=== PATIENT | male | born 1970 | race Caucasian/White ===

== ENCOUNTER 2021-10-30 07:25 | Outpatient (CLI) | payer BC ==
[2021-10-30 08:52] LABS: Hemoglobin 15.6 g/dL (13.5-17.5); Mean Corpuscular HGB CONC 33.8 g/dL (32.0-36.0); Mean Corpuscular Hemoglobin 32.4 pg (27.0-33.0); Mean Corpuscular Volume 95.6 fl (81.2-95.1); Mean Platelet Volume 10.3 fl (7.4-10.4); Platelet Count 267 10x3/uL (150-450); RBC Distribution Width 11.7 % (11.5-14.5); Red Blood Cell (RBC) Count 4.82 10x6/uL (4.32-5.72); White Blood Cell (WBC) Count 9.1 10x3/uL (3.5-10.5)
[2021-10-30 08:57] LABS: INR-International Normal Ratio 0.9; PTT 26.6 sec (22.0-33.0)
[2021-10-30 09:00] LABS: Anion Gap 17 mmol/L (10-20); BUN (Urea Nitrogen) 23 mg/dL (8.4-25.7); Calc. Creatinine Clearance 0 mL/min (70-130); Calcium 9.4 mg/dL (7.8-10.44); Carbon Dioxide 23 mmol/L (22-29); Chloride 105 mmol/L (98-107); Glucose 93 mg/dL (70-105); Potassium 5.2 mmol/L (3.5-5.1); Sodium 140 mmol/L (136-145)
[2021-10-30 23:01] LABS: SARS-CoV-2 PCR by NAA Not Detected (NotDetected)
== END 2021-10-30 07:26 | disposition home or self-care (01) ==
LOC: LABBT 07:25
PROVIDERS: ATTEND Surgery
DX: Z01.818 Encounter for other preprocedural examination (principal); M48.062 Spinal stenosis, lumbar region with neurogenic claudication; M51.16 Intervertebral disc disorders with radiculopathy, lumbar region; Z20.822 Contact with and (suspected) exposure to COVID-19
CPT/HCPCS: 80048; 85027; 85610; 85730; 93005; 93010; U0003; U0005

== ENCOUNTER 2021-11-02 08:01 | Observation (INO) | payer BC ==
[2021-10-31 13:02] VITALS: BMI 31.1
[2021-11-02] MEDS ORDERED: ceFAZolin (BATCH) 2 GM/100 ML BAG ONE (09:55)
[2021-11-02] MEDS ORDERED: Thrombin 5000 UNITS/5 ML VIAL ONE (10:10)
[2021-11-02] MEDS ORDERED: fentaNYL Citrate/PF 100 MCG/2 ML SYRINGE ONE (10:11)
[2021-11-02] MEDS ORDERED: HYDROmorphone 0.5 MG/0.5 ML SYRINGE ONE (10:11)
[2021-11-02] MEDS ORDERED: Midazolam HCl 2 mg/2 ml Vial ONE (10:11)
[2021-11-02] MEDS ORDERED: PROPOFOL 200 MG/20 ML VIAL ONE (10:36)
[2021-11-02] MEDS ORDERED: Rocuronium Bromide 10 MG/ML (10ML VIAL) ONE (10:36)
[2021-11-02] MEDS ORDERED: Lidocaine 1% PF 5 ML VIAL ONE (10:36)
[2021-11-02] MEDS ORDERED: Dexamethasone 20 MG/5 ML VIAL ONE (10:36)
[2021-11-02] MEDS ORDERED: PHENYLEPHRINE-NS 100 MCG/ML 10 ML SYRINGE ONE (10:36)
[2021-11-02] MEDS ORDERED: Ondansetron PF 4 MG/2 ML Vial ONE (10:36)
[2021-11-02] MEDS ORDERED: ePHEDrine 50 MG/ML VIAL ONE (10:36)
[2021-11-02] MEDS ORDERED: Glycopyrrolate 0.2 MG/ML 5 ML SYRINGE ONE (10:36)
[2021-11-02] MEDS ORDERED: Morphine 2 MG/ML VIAL SLOW IVP PRN (13:09)
[2021-11-02] MEDS ORDERED: Ondansetron PF 4 MG/2 ML Vial IVP PRN (13:09)
[2021-11-02] MEDS ORDERED: Acetaminophen/Codeine 30-300mg Tablet PO PRN (13:09)
[2021-11-02] MEDS ORDERED: Acetaminophen 325 MG TAB PO PRN (13:09)
[2021-11-02] MEDS ORDERED: Promethazine HCl 25 MG/ML VIAL IVPB PRN (13:11)
[2021-11-02] MEDS ORDERED: Ondansetron HCl/PF 4 MG/2 ML Vial IVP PRN (13:11)
[2021-11-02] MEDS ORDERED: HYDROmorphone 2 MG/ML VIAL SLOW IVP PRN (13:11)
[2021-11-02] MEDS ORDERED: Promethazine HCl 25 MG/ML VIAL IM PRN (13:11)
[2021-11-02] MEDS ORDERED: HYDROmorphone 2 MG/ML VIAL ONE (13:16)
[2021-11-02] MEDS ORDERED: hydrALAZINE 20 MG/ML VIAL SLOW IVP PRN (13:17)
[2021-11-02] MEDS ORDERED: tiZANidine HCl 4 MG TAB PO PRN (13:17)
[2021-11-02] MEDS ORDERED: Fentanyl 100 MCG/2 ML VIAL ONE (14:09)
[2021-11-02] MEDS: HYDROcodone/Acetaminophen 7.5/325 mg Tablet PO PRN (17:13)
[2021-11-02] MEDS: Sodium Chloride 0.9% 1,000 ML IV SCH (17:13)
[2021-11-02] MEDS: ceFAZolin (BATCH) 2 GM in Premix Bag 1 BAG IVPB SCH (17:14)
[2021-11-02] MEDS: traMADol HCl 50 MG TAB PO PRN (20:48)
[2021-11-02] MEDS ORDERED: Losartan 25 MG TAB PO SCH (21:00)
[2021-11-02] MEDS ORDERED: Gabapentin 300 MG CAP PO SCH (21:00)
[2021-11-02] MEDS ORDERED: Rosuvastatin 10 MG TAB PO SCH (21:00)
[2021-11-03] MEDS: HYDROcodone/Acetaminophen 7.5/325 mg Tablet PO PRN ×2 (00:19→10:54)
[2021-11-03] MEDS: ceFAZolin (BATCH) 2 GM in Premix Bag 1 BAG IVPB SCH (02:49)
[2021-11-03] MEDS: Sodium Chloride 0.9% 1,000 ML IV SCH (02:50)
[2021-11-03] MEDS: traMADol HCl 50 MG TAB PO PRN (05:42)
[2021-11-03 08:53] VITALS: BP 115/74; TEMP 98
== END 2021-11-03 11:05 | disposition home or self-care (01) ==
LOC: SDC 08:01 → SURG A 11:05
PROVIDERS: ADMIT Surgery; ATTEND Surgery
PROC: 01NB0ZZ Release Lumbar Nerve, Open Approach (ICD-10-PCS; principal; 2021-11-02)
PROC: 0SB20ZZ Excision of Lumbar Vertebral Disc, Open Approach (ICD-10-PCS; 2021-11-02)
PROC: 0SB40ZZ Excision of Lumbosacral Disc, Open Approach (ICD-10-PCS; 2021-11-02)
DX: M48.062 Spinal stenosis, lumbar region with neurogenic claudication (principal); M48.07 Spinal stenosis, lumbosacral region; M51.16 Intervertebral disc disorders with radiculopathy, lumbar region; M51.27 Other intervertebral disc displacement, lumbosacral region; Z79.899 Other long term (current) drug therapy
CPT/HCPCS: 76000; 96365; 96376; G0378; J0690; J1100; J1170; J2250; J2405; J2704; J3010; J3370; J3490; J7050